=== PATIENT | male | born 1995 | race Caucasian/White ===

== ENCOUNTER 2017-09-03 13:27 | Inpatient (IN) | payer BC ==
[2017-09-03] MEDS ORDERED: ACETAMINOPHEN TAB 650MG DOSE (2X325MG) PO (15:30)
[2017-09-03] MEDS ORDERED: MAALOX 30 ML SUSP *UDC PO (15:30)
[2017-09-03] MEDS ORDERED: MOM 30ML SUSPENSION UDC PO (15:30)
[2017-09-03] MEDS: ESCITALOPRAM OXALATE 10 MG TAB (LEXAPRO) PO (20:32)
[2017-09-03] MEDS: traZODone 50 MG TAB PO (20:32)
[2017-09-04] MEDS: INFLUENZA QUADRIVALENT PF VACCINE 0.5ML SYRINGE (90686) IM (09:46)
[2017-09-04] MEDS: traZODone 50 MG TAB PO (20:32)
[2017-09-04] MEDS: ESCITALOPRAM OXALATE 10 MG TAB (LEXAPRO) PO (20:32)
[2017-09-05] MEDS: traZODone 50 MG TAB PO (20:50)
[2017-09-05] MEDS: ESCITALOPRAM OXALATE 10 MG TAB (LEXAPRO) PO (20:50)
== END 2017-09-06 13:30 | disposition home or self-care (01) | DRG 751 ==
LOC: M ED 13:27 → M ED INP 15:20 → M PSY 16:41
DX: F33.0 Major depressive disorder, recurrent, mild (principal); F41.1 Generalized anxiety disorder; Z88.0 Allergy status to penicillin